=== PATIENT | female | born 1955 | race Caucasian/White ===

== ENCOUNTER 2017-07-17 02:19 | Emergency (ER) | payer BC ==
[~2017-07-17] VITALS: Ht 152.4 cm; Wt 88.5 kg
[~2017-07-17 02:19] MED LIST: ATV1 PO; LRT5 PO
[2017-07-17 02:23] VITALS: TEMP 36.3; Ht 152.4 cm; Wt 88.5 kg
[2017-07-17 03:02] VITALS: O2SAT 99
[2017-07-17 03:27] LABS: BASO % 0.1 %; BASO ABS # 0.01 K/uL (0-0.2); COMPLETE YES; EOS % 2.6 %; HEMATOCRIT 44.6 % (37-47); IG% 0.1 %; LYMPH % 44.9 %; MEAN CORPUSCULAR HEMOGLOBIN 30.3 pg (25-34); MEAN PLATELET VOLUME 10.1 fL (7.4-10.4); MONO % 5.8 %; NEUT % 46.5 %; PLATELET COUNT 224 K/uL (130-400); RED BLOOD COUNT 4.85 M/uL (4.2-5.4)
[2017-07-17 03:45] LABS: ALT/SGPT 23 U/L (12-78); AST/SGOT 14 U/L (15-37); BLOOD UREA NITROGEN 12 mg/dl (7-18); BUN/CREATININE RATIO 12.6 (10-20); CALCIUM 9.5 mg/dl (8.5-10.1); CARBON DIOXIDE 28 mmol/L (21-32); CHLORIDE 105 mmol/L (98-107); CREATININE 0.92 mg/dl (0.60-1.20); GLUCOSE 118 mg/dl (70-99); POTASSIUM 3.9 mmol/L (3.5-5.1); SODIUM 141 mmol/L (136-145)
[2017-07-17 03:56] LABS: ALKALINE PHOSPHATASE 60 U/L (45-117)
[2017-07-17 05:09] VITALS: BP 170/77
[2017-07-17 05:10] VITALS: PULSE 75; O2SAT 96
--- NOTE | 2017-07-17 05:21 | EMERGENCY ROOM VISIT NOTE ---
History First contact with patient: 02:24 Chief Complaint: HYPERTENSION Stated Complaint: FAST PULSE,CHECK BP History of Present Illness The patient is a 61 year old female who presents to the Emergency Room with complaints of feeling anxious with racing heart and funny noise in her ears for the past few hours. Patient feels as if she can feel her heartbeat in her ears. Patient states on her own she quit taking her blood pressure medication as she thought she did not need it. She was on hydrochlorothiazide. Patient did not check her blood pressure. Patient denies chest pain, dyspnea, fever, chills, cough, congestion, abdominal pain, numbness, tingling, headache, lightheadedness or dizziness. Review of Systems See HPI for pertinent positives & negatives. A total of 10 systems reviewed and were otherwise negative. Past Medical/Surgical History Tubal ligation, hypertension Social History Smoking Status: Never Smoker Smokeless Tobacco Use: No Alcohol Use: none Drug Use: none Marital Status: Housing Status: lives with family Current/Historical Medications No Active Prescriptions or Reported Meds Physical Exam Vital Signs Date Time Temp Pulse Resp B/P (MAP) Pulse Ox O2 Delivery O2 Flow Rate FiO2 07/17/17 03:35 168/78 98 Room Air 07/17/17 03:19 81 14 07/17/17 03:02 99 Room Air 07/17/17 03:02 99 Room Air 07/17/17 03:01 84 18 156/94 07/17/17 02:49 83 17 07/17/17 02:35 156/94 07/17/17 02:35 92 07/17/17 02:31 176/90 07/17/17 02:23 36.3 93 20 189/112 99 Room Air Physical Exam VITALS: Vitals are noted on the nurse's note and reviewed by myself. Vital signs hypertensive GENERAL: Pleasant anxious-appearing female, in no acute distress, nondiaphoretic , well-developed well-nourished. SKIN: The skin was without rashes, erythema, edema, or bruising. There is no tenting of the skin. Capillary reflex less than 2 seconds. HEAD: Normocephalic atraumatic. EARS: External auditory canals clear, tympanic membranes pearly smith without erythema or effusion bilaterally. EYES: Pupils equal round and reactive to light and accommodation. Conjunctivae without injection, sclerae without icterus. Extraocular movements intact. NOSE: Patent, turbinates without inflammation or discharge. MOUTH: Mucous membranes moist. Pharynx without erythema or exudate. Uvula midline. Airway patent. Tongue does not deviate. NECK: Supple without nuchal rigidity. No lymphadenopathy. No thyromegaly. Cervical spine is nontender. No JVD. HEART: Regular rate and rhythm LUNGS: Clear to auscultation bilaterally without wheezes, rales or rhonchi. No dullness to percussion. No retractions or accessory muscle use. ABDOMEN: Positive bowel sounds x 4. Normal tympanic percussion. Soft, nontender, without masses or organomegaly. Ramirez sign negative. No guarding or rebound tenderness. MUSCULOSKELETAL: No muscle atrophy, erythema, or edema noted. NEURO: Patient was alert and oriented to person place and time. Normal sensation to light and sharp touch. No focal neurological deficits. Medical Decision & Procedures Laboratory Results 07/17/17 03:08 Red Blood Count 4.85, Mean Corpuscular Volume 92.0, Mean Corpuscular Hemoglobin 30.3, Mean Corpuscular Hemoglobin Concent 33.0, Mean Platelet Volume 10.1, Neutrophils (%) (Auto) 46.5, Lymphocytes (%) (Auto) 44.9, Monocytes (%) (Auto) 5.8, Eosinophils (%) (Auto) 2.6, Basophils (%) (Auto) 0.1, Neutrophils # (Auto) 3.20, Lymphocytes # (Auto) 3.10, Monocytes # (Auto) 0.40, Eosinophils # (Auto) 0.18, Basophils # (Auto) 0.01 07/17/17 03:08 Test 07/17/17 03:08 07/17/17 04:55 White Blood Count 6.90 K/uL (4.8-10.8) Red Blood Count 4.85 M/uL (4.2-5.4) Hemoglobin 14.7 g/dL (12.0-16.0) Hematocrit 44.6 % (37-47) Mean Corpuscular Volume 92.0 fL (80-100) Mean Corpuscular Hemoglobin 30.3 pg (25-34) Mean Corpuscular Hemoglobin Concent 33.0 g/dl (32-36) Platelet Count 224 K/uL (130-400) Mean Platelet Volume 10.1 fL (7.4-10.4) Neutrophils (%) (Auto) 46.5 % Lymphocytes (%) (Auto) 44.9 % Monocytes (%) (Auto) 5.8 % Eosinophils (%) (Auto) 2.6 % Basophils (%) (Auto) 0.1 % Neutrophils # (Auto) 3.20 K/uL (1.4-6.5) Lymphocytes # (Auto) 3.10 K/uL (1.2-3.4) Monocytes # (Auto) 0.40 K/uL (0.11-0.59) Eosinophils # (Auto) 0.18 K/uL (0-0.5) Basophils # (Auto) 0.01 K/uL (0-0.2) RDW Standard Deviation 43.5 fL (36.4-46.3) RDW Coefficient of Variation 13.0 % (11.5-14.5) Immature Granulocyte % (Auto) 0.1 % Immature Granulocyte # (Auto) 0.01 K/uL (0.00-0.02) Anion Gap 8.0 mmol/L (3-11) Est Creatinine Clear Calc Drug Dose 63.6 ml/min Estimated GFR () 77.9 Estimated GFR (Non- 67.2 BUN/Creatinine Ratio 12.6 (10-20) Calcium Level 9.5 mg/dl (8.5-10.1) Total Bilirubin 0.3 mg/dl (0.2-1) Direct Bilirubin < 0.1 mg/dl (0-0.2) Aspartate Amino Transf (AST/SGOT) 14 U/L (15-37) Alanine Aminotransferase (ALT/SGPT) 23 U/L (12-78) Alkaline Phosphatase 60 U/L (45-117) Total Protein 7.4 gm/dl (6.4-8.2) Albumin 3.9 gm/dl (3.4-5.0) Thyroid Stimulating Hormone (TSH) 2.280 uIu/ml (0.300-4.500) Bedside Troponin I < 0.030 ng/ml (0-0.045) ED Course Prior records/ancillary studies reviewed regarding the history above. Triage Nursing notes reviewed. The patient's history was concerning for hypertension. Differential diagnosis: Etiologies such as benign hypertension, hypertensive emergency, cardiovascular pathology, pheochromocytoma, electrolyte abnormality, renal disease, endorgan damage, as well as others were entertained. Physical examination: As above. No signs of end organ damage. ER treatment provided: patient was observed On reassessment the patient felt better. Diagnostic interpretation by me: The electrocardiogram was normal sinus, normal intervals, minimal ST depression in the lateral leads with minimal ST elevation in aVR with rate of 102. Impression sinus tachycardia with minimal ST changes most likely rate dependent interpreted by myself. Repeat EKG was normal sinus, normal intervals , no acute ST-T wave changes with rate of 75. Impression normal sinus rhythm interpreted by myself The labs revealed 2 troponins are negative as greater than 2 hours apart. Euthyroid, mild hyperglycemia without DKA Imaging studies: Chest x-ray with no acute Consolidation, pneumothorax or free air per my interpretation This appears to be consistent with hypertension most likely elevated secondary to anxiety. Patient's blood pressure came down on her own. She was strongly encouraged to restart her blood pressure meds that was prescribed by her family care doctor. She is advised to follow-up for mildly elevated blood glucose. She is advised to decrease her stress, decrease her caffeine, alcohol, tobacco and salt intake, exercise eat a healthy diet and follow-up family care in a few days or here in the ER sooner for chest pain, difficulty breathing, elevated blood pressure, worsening signs or symptoms or as needed. Patient denied having any chest pain, dyspnea, diaphoresis or nausea or any other medical complaints on exam. She had no current medical complaints.. By the evaluation outlined above emergent etiologies such as hypertensive emergency, pheochromocytoma, endorgan damage, cardiac ischemia, aortic dissection, pulmonary embolism, pneumonia, pneumothorax, infections, gastrointestinal, as well as others were deemed relatively unlikely. The pt informed about the findings as listed above. All questions were answered and pleased with the treatment. Return instructions were outlined and the patient was discharged in stable condition. Case reviewed with my Attending. Referral: The patient was referred back to their primary care physician for follow-up in 2 to 3 days for a recheck of the current condition. Medical Decision as above Medication Reconcilliation Current Medication List: was personally reviewed by me Blood Pressure Screening Patient's blood pressure: Elevated blood pressure Blood pressure disposition: Referred to PCP Impression Primary Impression: Hypertension Additional Impression: Hyperglycemia Departure Information Dispostion Home / Self-Care Condition GOOD Prescriptions No Active Prescriptions or Reported Meds Referrals Todd, Bambi, M.D. (PCP) Patient Instructions My [facility] Additional Instructions Recommend that you restart your blood pressure medicine that was prescribed by your family care doctor. Recommend that you decrease caffeine, alcohol, tobacco and salt intake. Recommend regular exercise and a healthy diet. Monitor your blood pressure. Decrease your stress. Rest and drink plenty of fluids as tolerated. Continue current medications. Your blood sugar was slightly elevated today. Follow-up with family care for this. Return to the ER immediately for worsening or persistent blood pressure, abdominal pain, vomiting, fevers, chest pains, difficulty breathing, worsening of your condition, or as needed. Follow up with your primary physician in 2-3 days for a recheck of your current condition. Problem Qualifiers
--- NOTE | 2017-07-17 07:06 | DIAGNOSTIC IMAGING REPORT ---
SINGLE VIEW CHEST CLINICAL HISTORY: Atypical chest pain. FINDINGS: An AP, portable, upright chest radiograph is obtained. No prior studies are available for comparison at the time of dictation. The examination is degraded by portable technique, large body habitus, apical lordotic positioning, and patient rotation. The heart is top normal for projection. The mediastinal contour is within normal limits. There is minimal left basilar atelectasis. The lungs and pleural spaces are otherwise clear. No pneumothorax is seen. The skeletal structures are osteopenic. The bony thorax is grossly intact. There is thoracic scoliosis. IMPRESSION: No acute cardiopulmonary abnormality. Electronically signed by: Nicolás Holbrook M.D. 07/17/2017 7:04 AM Dictated Date/Time: 07/17/2017 7:03 AM
== END 2017-07-17 05:26 | disposition home or self-care (01) ==
LOC: C.EDB 02:20
DX: I10 Essential (primary) hypertension (principal); R73.9 Hyperglycemia, unspecified; Z98.51 Tubal ligation status

== ENCOUNTER → 2017-09-04 | Outpatient (CLI) | payer OTHER | END | disposition home or self-care (01) | LOC: C.PATHSPEC 10:46 | PROVIDERS: ATTEND Physician Assistant | DX: N84.1 Polyp of cervix uteri (principal) ==

== ENCOUNTER → 2017-09-04 | Outpatient (CLI) | payer OTHER | END | disposition home or self-care (01) | LOC: C.PAPS 10:47 | PROVIDERS: ATTEND Physician Assistant | DX: Z12.4 Encounter for screening for malignant neoplasm of cervix (principal); L25.9 Unspecified contact dermatitis, unspecified cause ==